=== PATIENT | female | born 1935 | race Caucasian/White ===

== ENCOUNTER → 2017-01-30 | Day surgery (SDC) | payer MEDICARE, BC ==
[~2017-01-30] MED LIST: Lactated Ringers 1,000 ML IV SCH; Propofol 200 MG/20 ML SDV IV ONE
[2017-01-30 10:23] VITALS: BP 154/76
--- NOTE | 2017-01-30 11:20 | OR ---
DATE OF OPERATION: 01/30/2017 PREOPERATIVE DIAGNOSIS: CHRONIC GASTROESOPHAGEAL REFLUX DISEASE. POSTOPERATIVE DIAGNOSIS: CHRONIC GASTROESOPHAGEAL REFLUX DISEASE. SURGEON: Todd Gonzalez MD PROCEDURE: EGD WITH JR. ANESTHESIA: BELLY ROLLER due to persistent severe reflux and advanced age. COMPLICATIONS: None. SPECIMEN: JR. FINDINGS: 1. Full-length EGD. 2. Moderate-sized hiatal hernia with nonobstructing Schatzki ring, no esophagitis or Cagle's changes. RECOMMENDATIONS: The patient needs to trial proton pump therapy and have close followup with Dr. Aleksandar MD medically. DESCRIPTION OF PROCEDURE: The patient was prepped and draped, placed in the left lateral decubitus position. A lubricated Olympus gastroscope was inserted over a bit, advanced cricopharyngeus and easily intubated in the esophagus. Esophageal lining was benign in its entire course. The Z-line is crisp and sharp at 36 to 36-1/2 cm. There was a mild to moderate-sized hiatal hernia present with a nonobstructing Schatzki ring. There was no distal esophagitis, stricturing, ulceration, or Cagle's changes. Scope was easily advanced into the stomach through the pylorus and into the third portion of duodenum. Second and third portion of the duodenum along with the bulb appear fine. No signs of any inflammation. Scope was brought back into the stomach and retroflexed. The hernia was visualized from below. The upper fundus and cardia appeared unremarkable. It was very difficult to insufflate her stomach, but no obvious abnormalities were seen. Upon straightening, the rest of the fundus and antrum appeared benign. A CLOtest was obtained. Air was then suctioned. Scope was removed without complication. BRANDON/JUDITH /[id number]
== END | disposition home or self-care (01) ==
LOC: CC.SDS 08:11
PROVIDERS: ATTEND Family Medicine
DX: K21.9 Gastro-esophageal reflux disease without esophagitis (principal)
CPT/HCPCS: 43235; 87081; J2704; J7120; 00740

== ENCOUNTER → 2017-12-18 | Day surgery (SDC) | payer MEDICARE, BC ==
[2017-12-18 09:34] VITALS: BP 164/71
--- NOTE | 2017-12-18 15:33 | OR ---
DATE OF OPERATION: 12/18/2017 PREOPERATIVE DIAGNOSIS: REFLUX WITH DYSPHAGIA. POSTOPERATIVE DIAGNOSIS: LARGE HIATAL HERNIA WITH NONOBSTRUCTING SCHATZKI'S RING. SURGEON: Todd Gonzalez MD PROCEDURE: ESOPHAGOGASTRODUODENOSCOPY WITH JR. 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 COMPLICATIONS: None. SPECIMEN: JR. FINDINGS: 1. Full-length EGD. 2. Large hiatal hernia with nonobstructing Schatzki's ring. RECOMMENDATIONS: Ongoing proton pump use, and follow up with medical provider in the next 2 weeks. INDICATIONS: The patient has been having some worsening reflux. Since Dr. Huertas gave her some antireflux therapy, she is doing much better, but she is occasionally having some dysphagia. Dr. Huertas recommended an EGD. DESCRIPTION OF PROCEDURE: The patient was prepped and draped, placed in the left lateral decubitus position. A lubricated Olympus gastroscope was inserted over a bit and advanced to cricopharyngeus area and easily intubated in the esophagus. The esophageal lining was benign in its entire course. The Z-line was crisp and sharp around 36 cm. There was a large hiatal hernia present with nonobstructing Schatzki's ring. The scope was advanced into the stomach through the pylorus into the second portion of the duodenum. This and the duodenal bulb were benign. The scope was brought back in the stomach and retroflexed. The upper fundus and cardia appeared unremarkable. No signs of any peptic ulcer disease throughout the entire length of the stomach. No polyps, masses, ulcerations, or otherwise. A JR test was obtained. Air was then suctioned. Scope was removed without complication. BRANDON/JUDITH /[id number]
== END ==
LOC: CC.SDS 07:50
PROVIDERS: ATTEND Family Medicine
DX: K22.2 Esophageal obstruction (principal); K44.9 Diaphragmatic hernia without obstruction or gangrene; K21.9 Gastro-esophageal reflux disease without esophagitis; M19.90 Unspecified osteoarthritis, unspecified site; K58.9 Irritable bowel syndrome, unspecified; E78.5 Hyperlipidemia, unspecified; I10 Essential (primary) hypertension; M81.0 Age-related osteoporosis without current pathological fracture; E55.9 Vitamin D deficiency, unspecified; F41.9 Anxiety disorder, unspecified; F32.9 Major depressive disorder, single episode, unspecified; Z87.891 Personal history of nicotine dependence; Z79.899 Other long term (current) drug therapy
CPT/HCPCS: 87081; J2704; J7120